=== PATIENT | male | born 1990 | race African-American/Black ===

== ENCOUNTER 2018-12-11 11:09 | Emergency (ER) | payer OTHER ==
[~2018-12-11] VITALS: Ht 165.1 cm; Wt 56.7 kg
[2018-12-11 11:10] VITALS: BP 134/74
[2018-12-11] MEDS ORDERED: ANUSOL-HC25 MG RECTAL (11:51)
== END 2018-12-11 12:00 | disposition home or self-care (01) ==
LOC: ER 11:09
DX: K62.89 Other specified diseases of anus and rectum (principal)